=== PATIENT | female | born 1930 | race Caucasian/White ===

== ENCOUNTER 2018-01-03 17:19 | Emergency (ER) | payer OTHER ==
[~2018-01-03] VITALS: Ht 152.4 cm; Wt 91.2 kg
[~2018-01-03 17:19] MED LIST: ACET325 PO; ASPI325 PO; ASPI325EC PO; ATEN25 PO; ATENOLOL 75 MG; BUME1 PO; Bactrim 400-801 EACH PO; CEPH250A PO; CIPR500 PO; CLOP75 PO; Cipro250 MG PO; FENO145 PO; FENO160; GABA300 PO; HYDACE5 PO; HYDCHL12.5; HYDCHL25 PO; Humalog100 UNIT/1 SC; Humulin N100 UNIT/1 SC; INS70/30I; INS70/30I SC; ISOMON30; Isosorbide Mono30 MG PO; MECL25 PO; METF500 PO; MUPI1NAS TOP; NITR.4SL SL; NITR100CA PO; Nitrostat0.4 MG SL; OXYACE5T PO; OXYC5 PO; POTA10T PO; PROACE100 PO; SACC250C PO; SPIR25 PO; TELM80 PO; VALS80; VALS80 PO
[2018-01-03 17:41] LABS: Source, Urine Catheter
[2018-01-03] MEDS ORDERED: Hydrocodone-Ap1 EA20 PO (17:42)
[2018-01-03 17:43] LABS: BASOPHILS ABSOLUTE AUTO 0.02 K/mm3 (0.00-0.23); BASOPHILS PERCENT AUTO 0 % (0-2); EOSINOPHILS ABSOLUTE AUTO 0.05 K/mm3 (0.00-0.68); EOSINOPHILS PERCENT AUTO 1 % (0-6); Hematocrit 41.9 % (33.0-51.0); Hemoglobin 13.7 g/dL (11.5-16.0); IMMATURE GRAN ABSOLUTE AUTO 0.03 K/mm3 (0.00-0.10); IMMATURE GRAN PERCENT AUTO 0 % (0-1); LYMPHOCYTES ABSOLUTE AUTO 0.48 K/mm3 (0.84-5.20); LYMPHOCYTES PERCENT AUTO 5 % (21-46); MONOCYTES ABSOLUTE AUTO 0.27 K/mm3 (0.16-1.47); MONOCYTES PERCENT AUTO 3 % (4-13); Mean Corpuscular HGB 28.5 pg (26.0-34.0); Mean Corpuscular HGB Conc 32.7 g/dL (31.5-36.5); Mean Corpuscular Volume 87 fL (80-100); Mean Platelet Volume 9.5 fL (9.1-12.4); NEUTROPHILS ABSOLUTE AUTO 8.71 K/mm3 (1.96-9.15); NEUTROPHILS PERCENT AUTO 91 % (41-73); Platelet Count 314 K/mm3 (150-400); RDW Coefficient Variation 13.4 % (11.7-14.2); RDW Standard Deviation 43.2 fL (35.1-46.3); Red Blood Cell Count 4.81 M/mm3 (3.80-5.20); White Blood Cell Count 9.56 K/mm3 (4.00-11.30)
[2018-01-03] MEDS ORDERED: FENO145 PO (17:43)
[2018-01-03 17:44] LABS: Appearance, Urine Clear (Clear); Bilirubin, Urine Neg (Neg); Blood, Urine 4+ (Neg); Color, Urine Yellow (P-Yellow); Glucose Qualitative, Urine 4+ (Neg); Ketones, Urine 1+ (Neg); Leukocyte Esterase, Urine Neg (Neg); Nitrite, Urine Neg (Neg); Protein, Urine Neg (Neg); Specific Gravity, Urine 1.015 (1.003-1.022); Urobilinogen, Urine NORM (Normal)
[2018-01-03 17:56] LABS: White Blood Cells, Urine 0-2 /hpf (0-5)
[2018-01-03 17:57] LABS: Bacteria Rare /hpf; Squamous Epithelial Cells Rare /hpf (Few)
[2018-01-03 18:01] LABS: Albumin, Blood 2.8 g/dL (3.4-5.0); Albumin/Globulin Ratio 0.7 (0.8-1.8); Bilirubin, Total 0.5 mg/dL (0.1-1.0); Bun/Creatinine Ratio 32.9 (12.0-20.0); Calcium, Blood 8.7 mg/dL (8.5-10.1); Creatinine, Blood 0.94 mg/dL (0.40-1.00); Globulin, Blood 4.1 g/dL (2.2-4.0); Potassium, Blood 4.3 mmol/L (3.5-5.5); Total Protein, Blood 6.9 g/dL (6.4-8.2)
[2018-01-03] MEDS ORDERED: ONDA4ODT MM (19:28)
[2018-03-24] MEDS ORDERED: Veetids 500500 MG PO (22:40)
== END 2018-01-03 19:52 | disposition home or self-care (01) ==
LOC: ER 17:19
PROVIDERS: Physician Assistant
DX: K52.9 Noninfective gastroenteritis and colitis, unspecified (principal); I25.10 Atherosclerotic heart disease of native coronary artery without angina pectoris; E11.40 Type 2 diabetes mellitus with diabetic neuropathy, unspecified; F03.90 Unspecified dementia, unspecified severity, without behavioral disturbance, psychotic disturbance, mood disturbance, and anxiety; Z88.8 Allergy status to other drugs, medicaments and biological substances; Z79.899 Other long term (current) drug therapy; Z79.4 Long term (current) use of insulin; Z79.82 Long term (current) use of aspirin
CPT/HCPCS: 36415; 74176; 80053; 81001; 83690; 85025; 93005; 93010; 99284; P9612

== ENCOUNTER → 2018-01-12 | Outpatient (CLI) | payer OTHER ==
[~2018-01-12] MED LIST changes: +Hydrocodone-Ap1 EA20 PO; +ONDA4ODT MM
== END | disposition home or self-care (01) ==
LOC: LAB EV 18:00 → LAB SHORT 18:00
DX: L98.499 Non-pressure chronic ulcer of skin of other sites with unspecified severity (principal)
CPT/HCPCS: 87070; 87077; 87186; 87205

== ENCOUNTER 2018-01-20 20:35 | Emergency (ER) | payer OTHER ==
[~2018-01-20] VITALS: Ht 160 cm; Wt 91.6 kg
== END 2018-01-20 22:22 | disposition left against medical advice (07) ==
LOC: ER 20:35
DX: Z53.21 Procedure and treatment not carried out due to patient leaving prior to being seen by health care provider (principal)

== ENCOUNTER → 2018-10-19 | Outpatient (CLI) | payer OTHER ==
[~2018-10-19] MED LIST changes: +Veetids 500500 MG PO
== END | disposition home or self-care (01) ==
LOC: LAB SHORT 15:35 → LAB EV 15:35
DX: R35.0 Frequency of micturition (principal)
CPT/HCPCS: 87077; 87086; 87186

== ENCOUNTER → 2019-01-10 | Outpatient (CLI) | payer OTHER ==
[2019-01-10 12:43] LABS: Source, Urine Clean Catch
[2019-01-10 15:08] LABS: Bilirubin, Urine Neg (Neg); Glucose Qualitative, Urine 1+ (Normal); Ketones, Urine Neg (Neg); Leukocyte Esterase, Urine 2+ (Neg); Nitrite, Urine Pos (Neg); Protein, Urine Trace (Neg); Urobilinogen, Urine NORM (Normal)
[2019-01-10 15:09] LABS: Appearance, Urine Cloudy (Clear); Blood, Urine 2+ (Neg); Color, Urine Yellow (P-Yellow); White Blood Cells, Urine TNTC /hpf (0-5)
[2019-01-10 15:10] LABS: Bacteria Many /hpf; Squamous Epithelial Cells Mod /hpf (Few)
[2019-01-10 15:11] LABS: Renal Epithelial Few /hpf (0-Rare); Transitional Epithelial Cells Few /hpf (0-Rare)
== END | disposition home or self-care (01) ==
LOC: LAB SHORT 11:55 → LAB EV 11:55
PROVIDERS: Nurse Practitioner Family
DX: R30.0 Dysuria (principal)
CPT/HCPCS: 81001

== ENCOUNTER → 2019-02-03 | Outpatient (CLI) | payer OTHER | END | disposition home or self-care (01) | LOC: LAB SHORT 13:21 → LAB EV 13:21 | DX: N39.0 Urinary tract infection, site not specified (principal) | CPT/HCPCS: 87077; 87086; 87186 ==

== ENCOUNTER 2019-02-13 11:10 | Inpatient (IN) | payer OTHER ==
[~2019-02-13] VITALS: Ht 157.5 cm; Wt 92.5 kg
[~2019-02-13 11:10] MED LIST changes: -BUME1 PO; -Humalog100 UNIT/1 SC; -Isosorbide Mono30 MG PO; +Norco 5-325 Ta1 EACH PO; +Novolog100 UNIT/2 SC
[2019-02-13 12:07] LABS: Source, Urine Catheter
[2019-02-13 12:19] LABS: Bilirubin, Urine Neg (Neg); Blood, Urine 4+ (Neg); Glucose Qualitative, Urine Neg (Neg); Ketones, Urine Neg (Neg); Leukocyte Esterase, Urine 3+ (Neg); Nitrite, Urine Neg (Neg); Protein, Urine Neg (Neg); Urobilinogen, Urine NORM (Normal)
[2019-02-13 12:54] LABS: Appearance, Urine Hazy (Clear); Bacteria Few /hpf; Color, Urine Yellow (P-Yellow); Squamous Epithelial Cells Few /hpf (Few)
[2019-02-13 13:10] LABS: BASOPHILS ABSOLUTE AUTO 0.06 K/mm3 (0.00-0.23); BASOPHILS PERCENT AUTO 1 % (0-2); EOSINOPHILS ABSOLUTE AUTO 0.11 K/mm3 (0.00-0.68); EOSINOPHILS PERCENT AUTO 1 % (0-6); Hematocrit 41.4 % (33.0-51.0); Hemoglobin 13.5 g/dL (11.5-16.0); IMMATURE GRAN ABSOLUTE AUTO 0.05 K/mm3 (0.00-0.10); IMMATURE GRAN PERCENT AUTO 1 % (0-1); LYMPHOCYTES ABSOLUTE AUTO 2.01 K/mm3 (0.84-5.20); LYMPHOCYTES PERCENT AUTO 20 % (21-46); MONOCYTES ABSOLUTE AUTO 0.87 K/mm3 (0.16-1.47); MONOCYTES PERCENT AUTO 8 % (4-13); Mean Corpuscular HGB 28.9 pg (26.0-34.0); Mean Corpuscular HGB Conc 32.6 g/dL (31.5-36.5); Mean Corpuscular Volume 89 fL (80-100); NEUTROPHILS ABSOLUTE AUTO 7.23 K/mm3 (1.96-9.15); NEUTROPHILS PERCENT AUTO 70 % (41-73); RDW Coefficient Variation 13.6 % (11.7-14.2); RDW Standard Deviation 44.1 fL (35.1-46.3); Red Blood Cell Count 4.67 M/mm3 (3.80-5.20); White Blood Cell Count 10.33 K/mm3 (4.00-11.30)
[2019-02-13 13:31] LABS: Albumin, Blood 2.9 g/dL (3.4-5.0); Albumin/Globulin Ratio 0.6 (0.8-1.8); Bilirubin, Total 0.5 mg/dL (0.1-1.0); Bun/Creatinine Ratio 28.5 (12.0-20.0); Calcium, Blood 9.1 mg/dL (8.5-10.1); Creatinine, Blood 1.37 mg/dL (0.40-1.00); Globulin, Blood 4.9 g/dL (2.2-4.0); Potassium, Blood 4.4 mmol/L (3.5-5.5); Total Protein, Blood 7.8 g/dL (6.4-8.2)
[2019-02-13 13:41] LABS: Mean Platelet Volume 9.9 fL (9.1-12.4); Platelet Count 287 K/mm3 (150-400)
[2019-02-13] MEDS ORDERED: BUME1 PO ×2 (15:35)
[2019-02-13] MEDS ORDERED: Isosorbide Mono60 MG PO ×2 (15:36)
--- NOTE | 2019-02-13 18:21 | NUR ---
PT AOX3 AND COOPERATIVE OF CARE. PT SETTLED INTO ROOM. PT HAVING L SHOULDER PAIN AND TREATED PER EMAR. NO DISTRESS NOTED. FAMILY PRESENT IN ROOM. PT PLEASANT AND HAS ANTIBOTIC STARTED. WILL CONTINUE TO MONITOR.
--- NOTE | 2019-02-13 18:28 | NUR ---
WOUND TO BOTTOM NOTED WITH DRAINAGE AT ADMISSION.
--- NOTE | 2019-02-13 21:01 | NUR ---
FAMILY VISITING. PT HAS A SIGNIFICANT NUMBER OF FAMILY MEMBERS HERE VISITING HER. HER PRIMARY CAREGIVER IS, APPARENTLY, HER SON. HER [id number] (?) HAS VERY STRONG OPINIONS ABOUT HOW THE PT SHOULD BE CARED FOR WHILE SHE IS HERE. IT APPEARS THAT THIS PARTICULAR FAMILY MEMBER WILL BE PRIMARY FOR THIS PT.
--- NOTE | 2019-02-13 21:35 | NUR ---
FAMILY WANTS A JEFFERS CATHETER. THE DAUGHTER SATES: "I STRONGLY SUGGEST GIVING HER A CATHETER LIKE THE ONE THAT SHE HAD IN THE ER". SHE IS SHOCKED THAT THIS SUGGESTION IS NOT PUT INTO PRACTICE. IT WAS EXPLAINED TO HER THAT THE MD WOULD NEED TO WRITE AN ORDER FOR THAT AND THAT THE HOSPITAL HAS POLICIES AGAINST USING JEFFERS CATHETERS OUTSIDE OF SPECIFIC PARAMETERS. THE DAUGHTER INTENDS TO SPEAK TO THE MD HINA.
--- NOTE | 2019-02-13 23:21 | NUR ---
OPEN AREAS ON SKIN. PT IS REPORTED TO HAVE OPEN AREAS ON HER BUTTOCKS. HOWEVER, HER FAMILY WAS HERE UNTIL RATHER LATE, AND SHE IS VERY PAINFUL TO MOVE/ROLL OVER. SHE IS PREPARED FOR SLEEP NOW AND WILL NEED ROUTINE RASHID CARE ON SCHEDULE. PHOTOS OF HER BUTTOCKS AREA CAN BE TAKEN AT THAT TIME. WILL CONTINUE TO MONITOR.
[2019-02-14 05:24] LABS: BASOPHILS ABSOLUTE AUTO 0.05 K/mm3 (0.00-0.23); BASOPHILS PERCENT AUTO 1 % (0-2); EOSINOPHILS ABSOLUTE AUTO 0.18 K/mm3 (0.00-0.68); EOSINOPHILS PERCENT AUTO 2 % (0-6); Hematocrit 38.8 % (33.0-51.0); Hemoglobin 12.3 g/dL (11.5-16.0); IMMATURE GRAN ABSOLUTE AUTO 0.04 K/mm3 (0.00-0.10); IMMATURE GRAN PERCENT AUTO 1 % (0-1); LYMPHOCYTES ABSOLUTE AUTO 2.01 K/mm3 (0.84-5.20); LYMPHOCYTES PERCENT AUTO 23 % (21-46); MONOCYTES ABSOLUTE AUTO 0.79 K/mm3 (0.16-1.47); MONOCYTES PERCENT AUTO 9 % (4-13); Mean Corpuscular HGB 28.6 pg (26.0-34.0); Mean Corpuscular HGB Conc 31.7 g/dL (31.5-36.5); Mean Corpuscular Volume 90 fL (80-100); Mean Platelet Volume 9.4 fL (9.1-12.4); NEUTROPHILS ABSOLUTE AUTO 5.53 K/mm3 (1.96-9.15); NEUTROPHILS PERCENT AUTO 64 % (41-73); Platelet Count 333 K/mm3 (150-400); RDW Coefficient Variation 13.5 % (11.7-14.2); RDW Standard Deviation 44.3 fL (35.1-46.3)
--- NOTE | 2019-02-14 05:35 | NUR ---
VSS, AFEBRILE, A/O, PLEASANT AND COOPERATIVE. PT SLEPT WELL OVERNOC, IS SWEET NATURED AND KIND TO HER CARE GIVERS. PT USES HER OWN CPAP AT HS, CALLS APPROPRIATELY AND IS IN GOOD SPIRITS. NO SIGNIFICANT CHANGES NOTED OVERNOC. PT CONTINUES TO BE VERY SENSITIVE TO THE PAIN IN HER LEFT SHOULDER/ARM. WILL REPORT TO ON-COMING SHIFT.
[2019-02-14 05:46] LABS: Albumin, Blood 2.7 g/dL (3.4-5.0); Albumin/Globulin Ratio 0.6 (0.8-1.8); Bilirubin, Total 0.5 mg/dL (0.1-1.0); Bun/Creatinine Ratio 27.1 (12.0-20.0); Calcium, Blood 9.3 mg/dL (8.5-10.1); Creatinine, Blood 1.4 mg/dL (0.40-1.00); Globulin, Blood 4.5 g/dL (2.2-4.0); Potassium, Blood 4.2 mmol/L (3.5-5.5); Total Protein, Blood 7.2 g/dL (6.4-8.2)
--- NOTE | 2019-02-14 15:05 | NUR ---
1500-I placed a call to [facility] for sharing family concerns that patient had hit her head hard when she fell at home also that she is complaining of back and hip pain-she will relay to doctor. Also cancel [facility].
--- NOTE | 2019-02-14 17:34 | NUR ---
PT AOX4 AND COOPERATIVE OF ALL CARE. PT TREATED FOR L SHOULDER PAIN PER EMAR AND DENIED BACK AND HIP PAIN WHEN ASKED FROM THIS THERAPIST'S ASSISTANT. PT HAS MORE PAIN WHEN BEING TURNED AND IS MOVED CAREFULLY TO MINIMIZE HER PAIN. PT HAS BEEN PLEASANT AND HAPPY TODAY. PT RECIEVED BATH AND IS USING BED VYAS AT THIS TIME. WILL CONTINUE TO MONITOR.
--- NOTE | 2019-02-15 04:26 | NUR ---
SHIFT SUMMARY PT ADMITTED FOR CELLULITIS OF R LEG. DNR. CARDIAC ADA DIET. ELEVATE R LEG. CBG AT AND HS. LOVENOX FOR DVT PROPHYLAXIS. 20 G IV TO R HAND. UNABLE TO TRANSFER DUE TO PAIN. TAKES MEDICATION WHOLE 1 AT A TIME. THE PT NOTED TO HAVE L HEMROUS FX WITH IMMONILIZER IN PLACE. THE PT NOTED TO HAVE EXTREME PAIN TO LEFT ARM WITH ANY KIND OF MOVEMENT. MEDICATED PER EMAR. PT STATED THAT PAIN IS PRESENT ONLY WITH MOVEMENT. PT USING BEDPAN TO VOID DUE TO INABILIY TO GET OUT OF BED DUE TO FEAR OF FALLING AND PAIN. PT WORKING WITH PT AND PT ABLE TO GET OUT OF BED WITH PT BUT CONTINUES TO BE VERY FEARFUL. MEPILEX TO BUTTOCKS C/D/I. PT IS 2 PERSON MAX ASSIST WHEN OUT OF BED WITH THERAPY, NURSING STAFF NOT GETTING PT UP PER PT AND FAMILY REQUEST. PT USING CPAP THIS NIGHT WELL WITHOUT COMPLICATIONS. THE PT HAS BEED PLEASENT AND COOPERATIVE. PT NEEDS STAFF TO MOVE SLOWLY AND EXPLAIN TASKS PRIOR TO COMPLETION TO INCREASE COMFORT AND REDUCE FEAR AND ANXIETY WITH CARE. THE PT HAS APPEARED TO SLEEP COMFORTABLY MOST OF THE NIGHT WITH NO APPARENT SIGNS OF ACUTE DISTRESS. ABLE TO MAKE NEEDS KNOWN AND CALL LIGHT IN REACH.
[2019-02-15 05:25] LABS: BASOPHILS ABSOLUTE AUTO 0.06 K/mm3 (0.00-0.23); BASOPHILS PERCENT AUTO 1 % (0-2); EOSINOPHILS PERCENT AUTO 3 % (0-6); Hematocrit 38.2 % (33.0-51.0); Hemoglobin 12.2 g/dL (11.5-16.0); IMMATURE GRAN ABSOLUTE AUTO 0.04 K/mm3 (0.00-0.10); IMMATURE GRAN PERCENT AUTO 1 % (0-1); LYMPHOCYTES ABSOLUTE AUTO 2.52 K/mm3 (0.84-5.20); LYMPHOCYTES PERCENT AUTO 31 % (21-46); MONOCYTES ABSOLUTE AUTO 0.83 K/mm3 (0.16-1.47); MONOCYTES PERCENT AUTO 10 % (4-13); Mean Corpuscular HGB Conc 31.9 g/dL (31.5-36.5); Mean Corpuscular Volume 91 fL (80-100); Mean Platelet Volume 9.2 fL (9.1-12.4); NEUTROPHILS ABSOLUTE AUTO 4.48 K/mm3 (1.96-9.15); NEUTROPHILS PERCENT AUTO 55 % (41-73); Platelet Count 319 K/mm3 (150-400); RDW Coefficient Variation 13.4 % (11.7-14.2); Red Blood Cell Count 4.21 M/mm3 (3.80-5.20); White Blood Cell Count 8.13 K/mm3 (4.00-11.30)
[2019-02-15 05:46] LABS: Bun/Creatinine Ratio 27.8 (12.0-20.0); Calcium, Blood 9.4 mg/dL (8.5-10.1); Creatinine, Blood 1.33 mg/dL (0.40-1.00); Potassium, Blood 4.3 mmol/L (3.5-5.5)
--- NOTE | 2019-02-15 16:17 | NUR ---
SHIFT SUMMARY THE PATIENT PRESENTED THIS SHIFT WITH LUNG SOUNDS THAT WERE DIMINISHED THROUGHOUT, A&O X3 AND WITH VITALS THAT WERE WNL, THE PATIENT WAS UP TO HE CHAIR WITH P/T AND SAT UP FOR THREE HOURS. THE PATIENT HAD FAMILY WITH HER MOST OF THE SHIFT. THE PATIENT IS RESTING AT THIS TIME, WILL CONTINUE TO MONITOR.
[2019-02-16 09:46] LABS: Calcium, Blood 9.6 mg/dL (8.5-10.1); Creatinine, Blood 1.2 mg/dL (0.40-1.00); Potassium, Blood 4.5 mmol/L (3.5-5.5)
[2019-02-16] MEDS ORDERED: Humulin N100 UNIT/1 SC ×2 (14:04)
[2019-02-16] MEDS ORDERED: Cefazolin1 GM/50 ML IV ×2 (14:10)
[2019-02-16] MEDS ORDERED: DICL250 ×2 (14:22)
--- NOTE | 2019-02-16 15:47 | NUR ---
PATIENT DISCHARGE THE PATIENT WAS DISCHARGED TO A SNF, AFTER REPORT WAS CALLED IN THE THE FACILLITY TO [facility]. THE PATIENTLEFT THE HOSPITAL VIA WHEELCHAIR. THE PATIENT LEFT THE HOSPITAL WITHOUT CONCERN OR COMPLAINT.
== END 2019-02-16 15:38 | DRG 638 ==
LOC: ER 11:10 → MEDS 15:46 → ENPENDDIS 02-16 12:23 → MEDS 02-16 15:38
PROVIDERS: Emergency Medicine; Internal Medicine Endocrinology, Diabetes & Metabolism; ADMIT Family Medicine
DX: E11.628 Type 2 diabetes mellitus with other skin complications (principal); S42.355A Nondisplaced comminuted fracture of shaft of humerus, left arm, initial encounter for closed fracture; L03.115 Cellulitis of right lower limb; E11.621 Type 2 diabetes mellitus with foot ulcer; L97.519 Non-pressure chronic ulcer of other part of right foot with unspecified severity; G92 Toxic encephalopathy; I12.9 Hypertensive chronic kidney disease with stage 1 through stage 4 chronic kidney disease, or unspecified chronic kidney disease; E11.22 Type 2 diabetes mellitus with diabetic chronic kidney disease; E11.65 Type 2 diabetes mellitus with hyperglycemia; N18.3 Chronic kidney disease, stage 3 (moderate); Z79.4 Long term (current) use of insulin; G89.11 Acute pain due to trauma; G89.21 Chronic pain due to trauma; M54.5 Low back pain; G62.9 Polyneuropathy, unspecified; R62.7 Adult failure to thrive; I25.10 Atherosclerotic heart disease of native coronary artery without angina pectoris; Z95.5 Presence of coronary angioplasty implant and graft; E78.5 Hyperlipidemia, unspecified; E66.9 Obesity, unspecified; G47.33 Obstructive sleep apnea (adult) (pediatric); Z87.440 Personal history of urinary (tract) infections; Z66 Do not resuscitate; W18.30XA Fall on same level, unspecified, initial encounter; I87.2 Venous insufficiency (chronic) (peripheral); Z68.37 Body mass index [BMI] 37.0-37.9, adult
CPT/HCPCS: 36415; 72100; 72170; 80048; 80053; 81001; 82947; 83605; 85025; 87040; 87077; 87086; 87186; 93971; 94762; 96365; 97110; 97116; 97162; 97530; 99285-25; A9270-GY; C1751; J0690; J0696; J1650; J1815; J2405; J7050; P9612

== ENCOUNTER → 2019-02-17 | Outpatient (CLI) | payer OTHER ==
[~2019-02-17] MED LIST changes: +BUME1 PO; +Cefazolin1 GM/50 ML IV; +DICL250; +Isosorbide Mono60 MG PO
[2019-02-17 14:40] LABS: Calcium, Blood 9.4 mg/dL (8.5-10.1); Creatinine, Blood 1.02 mg/dL (0.40-1.00); Potassium, Blood 4.3 mmol/L (3.5-5.5)
== END | disposition home or self-care (01) ==
LOC: LAB SHORT 13:30 → LAB 13:30
PROVIDERS: Hospitalist
DX: E11.9 Type 2 diabetes mellitus without complications (principal)
CPT/HCPCS: 80048

== ENCOUNTER → 2019-03-29 | Outpatient (CLI) | payer OTHER | END | disposition home or self-care (01) | LOC: LAB EV 14:50 → LAB SHORT 14:50 | DX: R31.9 Hematuria, unspecified (principal) | CPT/HCPCS: 87077; 87086; 87186 ==

== ENCOUNTER → 2019-05-10 | Outpatient (CLI) | payer OTHER | END | disposition home or self-care (01) | LOC: LAB SHORT 18:18 → LAB EV 18:18 | DX: N39.0 Urinary tract infection, site not specified (principal) | CPT/HCPCS: 87077; 87086; 87186 ==

== ENCOUNTER → 2019-05-25 | Outpatient (CLI) | payer OTHER ==
[2019-05-25 15:27] LABS: Source, Urine Clean Catch
[2019-05-25 16:15] LABS: Bilirubin, Urine Neg (Neg); Blood, Urine 5+ (Neg); Glucose Qualitative, Urine 1+ (Neg); Ketones, Urine Neg (Neg); Leukocyte Esterase, Urine 3+ (Neg); Nitrite, Urine Neg (Neg); Protein, Urine 2+ (Neg); Urobilinogen, Urine NORM (Normal)
[2019-05-25 17:25] LABS: Appearance, Urine Cloudy (Clear); Color, Urine Yellow (P-Yellow)
[2019-05-25 17:31] LABS: White Blood Cells, Urine TNTC /hpf (0-5)
[2019-05-25 17:32] LABS: Bacteria Mod /hpf; Red Blood Cells, Urine 25-50 /hpf (0-2); Squamous Epithelial Cells Not Seen /hpf (Few)
== END | disposition home or self-care (01) ==
LOC: LAB SHORT 14:25 → LAB 14:25
PROVIDERS: Hospitalist
DX: N39.0 Urinary tract infection, site not specified (principal)
CPT/HCPCS: 81001; 87077; 87086; 87186

== ENCOUNTER → 2019-06-16 | Outpatient (CLI) | payer OTHER | END | disposition home or self-care (01) | LOC: LAB EV 14:53 → LAB SHORT 14:53 | DX: N39.0 Urinary tract infection, site not specified (principal) | CPT/HCPCS: 87077; 87086; 87186 ==